=== PATIENT | female | born 1935 | race Caucasian/White ===

== ENCOUNTER → 2016-08-08 | Day surgery (SDC) | payer MEDICARE ==
[~2016-08-08] MED LIST: ALLO300T2 PO; APIX5TAB PO; CALTTAB5 PO; CART120C PO; DILT-60 PO; FLEC100T PO; LANS15CA PO; MORPHINE SULFATE PF 5 MG/10 ML VIAL IT ONE; OCUVTAB PO; PREV15CA15 PO; PROPOFOL 200 MG/20 ML AMP IV ONE; ROSU5 PO; SODIUM CHLORIDE 0.9% 250 ML ADDBAG ONE; SODIUM CHLORIDE 0.9% INJ 100 ML ONE; ceFAZolin INJ 1,000 MG VIAL ONE
--- NOTE | 2016-08-09 09:54 | M6 ---
cc: ISMAEL ESTEBAN M.D. DATE 07/20/2016 DATE OF 1935 PROCEDURE Implantation of intrathecal catheter for continuous infusion of intrathecal morphine. History and physical was completed and signed. Consent was signed. Procedure site was marked. Medications were listed and reconciled. Pain score was recorded. Allergies were noted. Time out was taken. Fluoroscopy time was recorded where applicable. Sedation was administered or directed by Dr. Esteban. The patient was given oxygen. The patient was monitored by a registered nurse. Total procedure time was greater than 15 minutes. PROCEDURE NOTE IV was started. Blood pressure cuff, pulse oximeter and EKG were applied. The patient was placed in a prone position on a Sunny table, sedated with small amounts of propofol titrated to effect. Vital signs were monitored and remained stable throughout the procedure. The lumbar area was prepped with alcohol and 10% Betadine solution and draped with sterile drapes. Fluoroscopy was used to visualize the L5-S1 interlaminar space. The skin was infiltrated with 1% Xylocaine using a 27-gauge needle. Then a 3-1/2-inch Tuohy needle was advanced using fluoroscopic guidance into the intrathecal space at L5-S1. There was clear flow of cerebrospinal fluid. Then a Portex catheter was threaded in the cephalad direction up to the L2-3 interspace. Then a small incision was made around the needle. The needle was removed. The stylet was removed from the catheter and there was clear flow of cerebrospinal through fluid through the catheter. Then a tunneling device was passed from the small incision in the lumbar area to exit on the patient's left flank and the catheter was passed through the tunneling device to exit on the patient's left flank. Then the exit site for the catheter and the puncture site in the lumbar region were covered with sterile adhesive dressings. The catheter was secured tightly to the skin. The catheter was connected to an infusion pump containing morphine 0.01 mg/mL and set at a rate of 0.5 mL/hour. The patient was taken to the recovery room with stable vital signs, neurologically intact. W. MD MANOLO Diaz/BENY /8:13 AM /9:49 AM
== END | disposition home or self-care (01) ==
LOC: PHSDC 06:28
PROVIDERS: ATTEND Pain Medicine Interventional Pain Medicine
DX: M54.5 Low back pain (principal); M41.9 Scoliosis, unspecified
CPT/HCPCS: 62350; 99152; 99153; C2626; J0690; J2274

== ENCOUNTER → 2016-09-25 | Outpatient (CLI) | payer MEDICARE ==
[~2016-09-25] MED LIST changes: -CALTTAB5 PO; -DILT-60 PO; -LANS15CA PO; -MORPHINE SULFATE PF 5 MG/10 ML VIAL IT ONE; -PROPOFOL 200 MG/20 ML AMP IV ONE; -SODIUM CHLORIDE 0.9% 250 ML ADDBAG ONE; -SODIUM CHLORIDE 0.9% INJ 100 ML ONE; -ceFAZolin INJ 1,000 MG VIAL ONE
[2016-09-25 13:58] LABS: AUTOMATED NEUTROPHIL # 5.2 TH/MM3 (1.8-7.7); BASOPHIL % 0.6 % (0.0-2.0); EOSINOPHIL # 0.1 TH/MM3 (0-0.4); EOSINOPHIL % 1.5 % (0.0-4.0); HEMATOCRIT 42.2 % (35.0-46.0); HEMO FLAGS DIFF FINAL; LYMPH % 16.5 % (9.0-44.0); LYMPHOCYTE # 1.3 TH/MM3 (1.0-4.8); MEAN CORPUSCULAR HEMOGLOBIN 27.7 PG (27.0-34.0); MEAN CORPUSCULAR HGB CONC 32.9 % (32.0-36.0); MONO % 13.9 % (0.0-8.0); NEUT % 67.5 % (16.0-70.0); PLATELET COUNT 331 TH/MM3 (150-450); RED BLOOD COUNT 5.03 MIL/MM3 (4.00-5.30); RED CELL DISTRIBUTION WIDTH 15.9 % (11.6-17.2); WHITE BLOOD COUNT 7.7 TH/MM3 (4.0-11.0)
[2016-09-25 14:07] LABS: BACTERIA, URINE RARE /hpf; BLOOD, URINE NEG (NEG); COMMENT (UR) CULTURE INDICATED; CULTURE IF INDICATED CULTURE INDICATED; GLUCOSE,URINE NEG (NEG); KETONE, URINE NEG (NEG); MUCUS URINE FEW /lpf (OCC); NITRITE,URINE NEG (NEG); PH, URINE 5.5 (5.0-8.5); SQUAMOUS EPITHELIAL CELL URINE 1 /hpf (0-5); TRANSITIONAL EPI CELLS, URINE <1 /hpf; URINE COLOR YELLOW (YELLW/STRAW)
== END ==
LOC: PHPRE 12:53
PROVIDERS: ATTEND Pain Medicine Interventional Pain Medicine
DX: Z01.812 Encounter for preprocedural laboratory examination (principal); M54.5 Low back pain; R82.90 Unspecified abnormal findings in urine
CPT/HCPCS: 36415; 81001; 84132; 85025; 87086

== ENCOUNTER → 2016-10-02 | Day surgery (SDC) | payer MEDICARE ==
[~2016-10-02] VITALS: Ht 157.5 cm; Wt 60.0 kg
[~2016-10-02] MED LIST changes: +ACETAMINOPHEN 1000 MG/100 ML VIAL IV ONE; +ACETAMINOPHEN/HYDROcodone 325 MG/5 MG TAB ONE; +APREPITANT 40 MG CAP ONE; +BUPIVACAINE/EPINEPHRINE 0.5% PF 30 ML VIAL ONE; +DEXAMETHASONE SOD PHOS 4 MG/ML VIAL ONE; +FAMOTIDINE 20 MG/2 ML VIAL ONE; +LACTATED RINGER'S 1000 ML INJ 1,000 ML ONE; +MIDAZOLAM HCL 2 MG/2 ML VIAL ONE; +MORPHINE SULFATE PF 10 MG/10 ML VIAL IT ONE; +NEOSTIGMINE 3 MG/3 ML SYR IV ONE; +SODIUM CHLORIDE 0.9% 20 ML VIAL ONE; +SODIUM CHLORIDE 0.9% INJ 100 ML ONE; +SODIUM CHLORIDE 0.9% INJ 50 ML ONE; +VANCOMYCIN 500 MG VIAL ONE; +ceFAZolin INJ 1,000 MG VIAL ONE
[2016-10-02 01:30] VITALS: PULSE 64
[2016-10-02 10:48] VITALS: BP 149/82; PULSE 74; RESP 20; TEMP 97.9; O2SAT 98
[2016-10-02 11:08] LABS: APTT (PATIENT) 22.2 SEC (24.3-30.1); PROTHROMBIN TIME - PATIENT 10.6 SEC (9.8-11.6)
[2016-10-02 15:15] VITALS: BP 122/68; PULSE 64; RESP 16; TEMP 97.7; O2SAT 97
--- NOTE | 2016-10-05 12:31 | MP ---
cc: ISMAEL GONCALVES M.D. DATE OF SURGERY 10/02/2016 DATE OF 1935 PROCEDURE 1. Implantation of intrathecal catheter for continuous infusion of intrathecal morphine. 2. Implantation of [employer] SynchroMed pump PREPROCEDURE DIAGNOSIS Lumbago, lumbar radiculopathy and intractable pain. POSTPROCEDURE DIAGNOSIS Lumbago, lumbar radiculopathy and intractable pain. PROCEDURE NOTE IV was started in the holding area. The patient was given IV antibiotics, taken to the operating room, given general endotracheal anesthesia, placed in the right lateral decubitus position. All pressure points were checked and padded. Then her abdomen and lumbar area was prepped with Chloraprep and draped with sterile drapes. Fluoroscopy was used to visualize the third, fourth and fifth lumbar vertebra. The skin was infiltrated with 1% Xylocaine using a 25 gauge needle. Then a modified Tuohy needle from the [employer] kit was advanced into the intrathecal space. There was clear flow of cerebrospinal fluid. Then a [employer] Silastic catheter was threaded in a cephalad direction approximately two vertebral bodies. This was visualized under fluoroscopy. Then an incision was made around the needle and then the needle was removed. The stylet was removed from the catheter. There was clear flow of cerebrospinal fluid through the catheter, then an anchoring device was placed around the catheter and the catheter was then sutured to the interspinous ligament. Then the skin in the left subcostal region was infiltrated with 0.5% Marcaine containing epinephrine and an incision was made. A subcutaneous pocket was created. Hemostasis was obtained with Bovie. Then a tunneling device was used to tunnel the spinal catheter from the lumbar incision to the subcutaneous pocket in the left subcostal area. Then a portion of the intrathecal catheter was cut and measured on a side table and discarded and the [employer] nipple catheter was placed over the nipple of the pump and its security was checked. Then the intrathecal catheter and the distal extension catheter were connected using the snap on connector from [employer]. There was clear flow of cerebrospinal fluid throughout the entire catheter system. Then the pump, which had been filled with sterile solution on a side table and placed in a Dacron cuff, was placed in the subcutaneous pocket and anchored to the underlying fascia using two 2-0 Ethibond sutures. A small amount of Betadine was used to irrigate the incision, then both the abdominal incision and lumbar incisions were closed using 3-0 Monocryl in the subcuticular tissue and 3-0 nylon on the skin. The incisions were covered with sterile adhesive dressings and the patient was taken to the recovery room with stable vital signs neurologically intact. W. MD MANOLO Diaz/FERNIE /1:30 PM /12:19 PM
== END | disposition home or self-care (01) ==
LOC: PHSDC 09:12
PROVIDERS: ATTEND Pain Medicine Interventional Pain Medicine
DX: M54.16 Radiculopathy, lumbar region (principal); I48.91 Unspecified atrial fibrillation; I10 Essential (primary) hypertension; E78.5 Hyperlipidemia, unspecified
CPT/HCPCS: 00630; 62350; 62362; 76000; 85610; 85730; C1755; C1772; J0131; J0690; J1100; J2250; J2274; J2710; J3370; J7120; J8501